=== PATIENT | female | born 1945 | race Caucasian/White ===

== ENCOUNTER 2018-11-14 08:49 | Day surgery (SDC) | payer OTHER ==
[2018-11-14 08:46] LABS: Absolute Lymphocytes (CBC) 1.3 K/uL (0.7-4.9); Absolute Monocytes 0.6 K/uL (0.1-1.3); Absolute Neutrophil 4.4 K/uL (1.8-8.0); Basophils % 1.1 % (0-1.3); Eosinophils % 4.3 % (0-4.4); Hematocrit 43.8 % (36.0-45.0); Lymphocytes % 19.5 % (15.3-44.8); MPV 8.7 fL (7.6-11.3); Monocytes % 9.2 % (3.3-12.3); RBC Red Blood Cell Count 5.08 M/uL (3.86-4.86)
--- OUTSIDE RECORDS SUMMARY | 2018-11-14 08:52 | XMS REPORT ---
:1945 [facility] Address [address] [place] [address] [place] [id number] Care Team Providers Name Role Phone Unavailable Unavailable Unavailable Problems This patient has no known problems. Allergies, Adverse Reactions, Alerts This patient has no known allergies or adverse reactions. Medications This patient has no known medications.
[2018-11-14 08:58] LABS: Potassium 4.1 mmol/L (3.5-5.1)
--- NOTE | 2018-11-14 09:08 | RAD REPORT ---
EXAM DESCRIPTION: RAD - Chest Pa And Lat (2 Views) - 11/14/2018 8:34 am CLINICAL HISTORY: PREOP Chest pain. COMPARISON: CHEST PA AND LAT 2 VIEW dated 09/22/2008 FINDINGS: The lungs are clear. The heart is mildly prominent size with dual lead pacer device presen t. No displaced fractures. IMPRESSION: No acute or concerning finding suspected.
[2018-11-14] MEDS ORDERED: Ringers Lactate 1,000 ML IV ONE (09:22)
[2018-11-14] MEDS ORDERED: CEFAZOLIN 1GM (PREMIX IV) 1 GM/50 ML BAG ONE (09:22)
[2018-11-14 09:27] VITALS: TEMP 98; O2SAT 99
[2018-11-14] MEDS ORDERED: SCOPOLAMINE HYDROBROMIDE PATCH TD ONE (09:40)
[2018-11-14] MEDS ORDERED: LIDOCAINE 1% MPF 30 ML VIAL ONE (10:11)
[2018-11-14] MEDS ORDERED: FENTANYL CITR 100 MCG/2 ML ONE (10:29)
[2018-11-14] MEDS ORDERED: MIDAZOLAM HCL 2 MG/2 ML INJ ONE (10:29)
[2018-11-14] MEDS ORDERED: LIDOCAINE 1% MPF 5 ML VIAL ONE (10:29)
[2018-11-14] MEDS ORDERED: PROPOFOL 200 MG/20 ML VIAL IV ONE (10:29)
[2018-11-14] MEDS ORDERED: Mastisol Adhesive Liq ONE (11:16)
--- NOTE | 2018-11-14 12:28 | EKG ---
Test Date: 2018-11-14 Test Time: 08:43:48 Lawn Mower Sharpener: RODRIGO MEASUREMENT RESULTS: Intervals: Rate: 69 SD: 202 QRSD: 94 QT: 422 QTc: 452 [place]: P: 66 SD: 202 QRS: -19 T: 33 INTERPRETIVE STATEMENTS: Normal sinus rhythm Inferior infarct, age undetermined Cannot rule out Anterior infarct, age undetermined Abnormal ECG Compared to ECG 01/19/2009 11:03:05 Myocardial infarct finding now present Sinus bradycardia no longer present First degree AV block no longer present Electronically Signed On 11-14-18 12:27:35 BRIDGE WORKER APPRENTICE by Fan Costa
[2018-11-14 13:36] VITALS: BP 126/54
--- NOTE | 2018-11-14 23:11 | OP ---
Date of Procedure: 11/14/2018 Surgeon: Jeff Murphy MD Preoperative Diagnosis: Left vision change, rule out temporal arteritis. Postoperative Diagnosis: Left vision change, rule out temporal arteritis. Procedure: Left temporal artery biopsy, Doppler aided. Estimated Blood Loss: Minimal. Specimen: Left temporal artery. Findings: As above. Anesthesia: MAC. Complications: None. Disposition: The patient tolerated the procedure in stable condition and taken to Recovery in good g eneral condition. Procedure In Detail: The patient was brought to the OR and placed in supine position. MAC anesthesi a was begun. The patient was prepped and draped in the usual sterile fashion. Marcaine 0.5% was inf iltrated locally. After Doppler device was used to localize the branch of the temporal artery, then a 4 cm incision was made anteriorly to the left ear and superior. Subcutaneous tissue divided. Prox imal and distal ends of the artery identified and ligated with 4-0 silk. A 4 cm segment excised, sen t to Pathology. Wound irrigated, bleeding controlled with cautery, and then 4-0 chromic was used to approximate the subcutaneous tissue and close the skin. Sterile dressing was applied. The patient w as awakened and taken to Recovery in good general condition. Discharge Note: The patient will go to day surgery and home when stable. Disposition: Home. Condition: Stable. Discharge Instructions: Resume home medications and diet. Activity as tolerated. No heavy lifting. Remove outer dressing in 2 days. Shower. Keep wound clean and dry. Keep Steri-Strips on at all t imes. Ultracet 1 tablet p.o. q.4 p.r.n. pain. Follow up in my office in 2 weeks. Call for appointm ent. Follow up with Dr. Kasper in 1 week. Call for appointment. /MODL Voice ID: [id number] Report ID: [id number]
== END 2018-11-14 12:20 | disposition home or self-care (01) ==
LOC: OR 08:49
PROVIDERS: ATTEND Surgery
PROC: 03BT0ZX Excision of Left Temporal Artery, Open Approach, Diagnostic (ICD-10-PCS; principal; 2018-11-14 10:00)
DX: H53.9 Unspecified visual disturbance (principal); Z95.0 Presence of cardiac pacemaker; Z79.01 Long term (current) use of anticoagulants; Z88.0 Allergy status to penicillin; Z88.6 Allergy status to analgesic agent; Z88.3 Allergy status to other anti-infective agents
CPT/HCPCS: 36415; 37609; 71046; 80048; 85025; 88305; 93005; J0690; J2250; J2704; J3010